=== PATIENT | male | born 1945 | race Caucasian/White ===

== ENCOUNTER 2019-02-12 19:40 | Emergency (ER) | payer MEDICARE ==
--- NOTE | 2019-02-12 21:59 | ER Document Report ---
ED Medical Screen (RME) - General Chief Complaint: Abdominal Pain Stated Complaint: RIGHT SIDE PAIN Time Seen by Provider: 02/12/19 21:53 Primary Care Provider: MONIKA CARBAJAL MD [Primary Care Provider] - Follow up as needed Notes: Patient is a 73-year-old male who presents the emergency department with a chief complaint of right sided abdominal pain. He states that his symptoms started yesterday. States that it his symptoms gradually got worse. Describes his pain as a dull pain at this time. It was sharp earlier. States it feels like a "toothache". His symptoms were also on and off. Denies any fever. He did feel nauseous earlier, but does not feel nauseous at this time. He has not taken any medications to help with his symptoms. He has a past medical history of diabetes, hypertension, and hyperlipidemia. Patient does smoke. Exam: Tender right mid to lower abdomen I have greeted and performed a rapid initial assessment of this patient. A comprehensive ED assessment and evaluation of the patient, analysis of test results and completion of medical decision making process will be conducted by an additional ED providers. TRAVEL OUTSIDE OF THE [place] IN LAST 30 DAYS: No - Related Data Allergies/Adverse Reactions: No Known Drug Allergies Allergy (Verified 02/12/19 19:47) Physical Exam - Vital signs Vitals: Temp Pulse Resp BP Pulse Ox 98.5 F 93 16 153/74 H 97 02/12/19 19:50 02/12/19 19:50 02/12/19 19:50 02/12/19 19:50 02/12/19 19:50 Course - Vital Signs Vital signs: Temp Pulse Resp BP Pulse Ox 98.5 F 93 16 153/74 H 97 02/12/19 19:50 02/12/19 19:50 02/12/19 19:50 02/12/19 19:50 02/12/19 19:50 Doctor's Discharge - Discharge Referrals: MONIKA CARBAJAL MD [Primary Care Provider] - Follow up as needed
[2019-02-12 23:21] LABS: ABSOLUTE BASOPHILS # (AUTO) 0.1 10^3/uL (0.0-0.2); ABSOLUTE EOSINOPHILS # (AUTO) 0.3 10^3/uL (0.0-0.6); ABSOLUTE LYMPHOCYTES (AUTO) 2.1 10^3/uL (0.5-4.7); ABSOLUTE MONOCYTES (AUTO) 0.7 10^3/uL (0.1-1.4); ABSOLUTE NEUT (AUTO) 6.5 10^3/uL (1.7-8.2); BASOPHILS % (AUTO) 1.2 % (0-2); EOSINOPHILS % (AUTO) 2.8 % (0-6); HEMATOCRIT 39.2 % (37.9-51.0); HEMOGLOBIN 13.4 g/dL (13.5-17.0); LYMPHOCYTES % (AUTO) 21.8 % (13-45); MEAN CORPUSCULAR HEMOGLOBIN 30.2 pg (27.0-33.4); MEAN CORPUSCULAR HGB CONC 34.2 g/dL (32.0-36.0); MEAN CORPUSCULAR VOLUME 88 fl (80-97); MONOCYTES % (AUTO) 7.1 % (3-13); PLATELET COUNT 284 10^3/uL (150-450); RED BLOOD COUNT 4.45 10^6/uL (4.35-5.55); RED CELL DISTRIBUTION WIDTH 13.9 % (11.5-14.0); SEGMENTED NEUTROPHILS % (AUTO) 67.1 % (42-78); TOTAL CELLS COUNTED % (AUTO) 100 %; WHITE BLOOD COUNT 9.6 10^3/uL (4.0-10.5)
[2019-02-12 23:23] LABS: APPEARANCE,URINE CLEAR; BILIRUBIN,URINE NEGATIVE (NEGATIVE); COLOR,URINE YELLOW; GLUCOSE, URINE NEGATIVE (NEGATIVE); KETONES,URINE TRACE mg/dL (NEGATIVE); LEUKOCYTE ESTERASE,URINE NEGATIVE (NEGATIVE); NITRITE,URINE NEGATIVE (NEGATIVE); PROTEIN,URINE NEGATIVE (NEGATIVE)
[2019-02-12 23:40] LABS: ALANINE AMINOTRANSFERASE 40 U/L (21-72); ALBUMIN 4.5 g/dL (3.5-5.0); ALKALINE PHOSPHATASE 70 U/L (38-126); ANION GAP 11 (5-19); ASPARTATE AMINO TRANSFERASE 25 U/L (17-59); BILIRUBIN,DIRECT 0.2 mg/dL (0.0-0.4); BILIRUBIN,TOTAL 0.2 mg/dL (0.2-1.3); BLOOD UREA NITROGEN 18 mg/dL (7-20); CALCIUM 10.3 mg/dL (8.4-10.2); CARBON DIOXIDE 28 mmol/L (22-30); CHLORIDE 102 mmol/L (98-107); GLUCOSE 140 mg/dL (75-110); LIPASE 166.4 U/L (23-300); POTASSIUM 4.1 mmol/L (3.6-5.0); SODIUM 140.9 mmol/L (137-145); TOTAL PROTEIN 7.7 g/dL (6.3-8.2)
--- NOTE | 2019-02-13 01:27 | RADIOLOGY REPORT (SQ) ---
EXAM DESCRIPTION: [facility]: CT ABDOMEN PELVIS WITH IV CONTRAST CLINICAL HISTORY: 73 years Male; right mid/lower abdomen. CREAT 0.94 TECHNIQUE: CT of the abdomen and pelvis using intravenous 100 mL Omnipaque [address] scans at this facility use dose modulation, iterative reconstruction, and/or weight based dosing when appropriate to reduce radiation dose to as low as reasonably achievable. COMPARISON: None. FINDINGS: Large hiatal hernia is noted. No adjacent edema or extraluminal fluid/air. Abdomen: Liver: Diffusely hypodense. No focal lesion or ductal distention. Gallbladder: Contracted. No adjacent edema. Pancreas:Within normal limits Spleen:Within normal limits Right kidney:No hydronephrosis. No focal lesion. Left kidney:No hydronephrosis. No focal lesion. Adrenal glands:Within normal limits Vascular structures: Scattered aortic and branch calcifications. No aneurysm or dissection. No major branch occlusion. Pelvis: Small bowel:No significant distention. Appendix:Within normal limits Colon:No distention or acute pericolonic edema. No free intraperitoneal fluid or air. Prostate: Multiple brachytherapy seeds. Bladder is unremarkable. No enlarged pelvic lymph nodes. No acute bone findings. No focal blastic lesions. IMPRESSION: 1. No acute findings 2. Large hiatal hernia 3. Hepatic steatosis 4. Prostate seeds. No evidence for metastatic disease in the abdomen or pelvis.
--- NOTE | 2019-02-13 01:55 | ER Document Report ---
ED General - General Chief Complaint: Abdominal Pain Stated Complaint: RIGHT SIDE PAIN Time Seen by Provider: 02/12/19 21:53 Primary Care Provider: MONIKA CARBAJAL MD [ASSOCIATE] - 02/15/19 Notes: Patient is a pleasant 73-year-old male who presents with complaints of several days of worsening abdominal pain. Pain is mostly in the lower abdomen is little bit worse than the right. Says yesterday he felt as if he was constipated but today had a bowel movement and therefore does not think is related to that. Some nausea but no vomiting. No fevers. No dysuria. No blood in the stool. No other complaints at this time. TRAVEL OUTSIDE OF THE [place] IN LAST 30 DAYS: No - Related Data Allergies/Adverse Reactions: No Known Drug Allergies Allergy (Verified 02/12/19 22:04) Past Medical History - Social History Smoking Status: Current Every Day Smoker Frequency of alcohol use: None Drug Abuse: None Family History: Reviewed & Not Pertinent Patient has suicidal ideation: No Patient has homicidal ideation: No - Past Medical History Cardiac Medical History: Reports: Hx Heart Attack - 2013, Hx Hypercholesterolemia Endocrine Medical History: Reports: Hx Diabetes Mellitus Type 2 Renal/ Medical History: Denies: Hx Peritoneal Dialysis Past Surgical History: Reports: Hx Cardiac Catheterization - stent Review of Systems - Review of Systems Notes: My Normal Review Basic REVIEW OF SYSTEMS: CONSTITUTIONAL : Denies fever, chills, or sweats. Denies recent illness. EENT: Denies eye, ear, throat, or mouth pain or symptoms. Denies nasal or sinus congestion. CARDIOVASCULAR: Denies chest pain. RESPIRATORY: Denies cough, cold, or chest congestion. Denies shortness of br eath, difficulty breathing, or wheezing. GASTROINTESTINAL: Abdominal pain. Some nausea. No vomiting. GENITOURINARY: Denies difficulty urinating, painful urination, burning, frequency, or blood in urine. SKIN: Denies rash or skin lesions. NEUROLOGICAL: Denies altered mental status or loss of consciousness. Denies headache. Denies weakness or paralysis or loss of use of either side. Denies problems with gait or speech. Denies sensory or motor loss. ALL OTHER SYSTEMS REVIEWED AND NEGATIVE. Physical Exam - Vital signs Vitals: Temp Pulse Resp BP Pulse Ox 98.5 F 93 16 153/74 H 97 02/12/19 19:50 02/12/19 19:50 02/12/19 19:50 02/12/19 19:50 02/12/19 19:50 - Notes Notes: General Appearance: Well nourished, alert, cooperative, no acute distress, mild obvious discomfort. Well-appearing. Vitals: reviewed, See vital signs table. Eyes: PERRL, EOMI, Conjuctiva clear Mouth: No decreasd moisture Lungs: No wheezing, No rales, No rhonci, No accessory muscle use, good air exchange bilaterally. Heart: Normal rate, Regular rythm, No murmur, no rub Abdomen: Normal BS, soft, No rigidity, mild right lower quadrant and suprapubic abdominal tenderness to palpation., No guarding, no rebound, no abdominal masses, no organomegaly Extremities: strength 5/5 in all extremities, good pulses in all extremities, no swelling or tenderness in the extremities, no edema. Skin: warm, dry, appropriate color, no rash Neuro: speech clear, oriented x 3, normal affect, responds appropriately to questions. Course - Re-evaluation Re-evalutation: 02/13/19 01:[address] scan does not show any concerning findings. His laboratory evaluation is completely unremarkable. He does mention that yesterday when the symptoms first arrived he felt more like constipation. He had a bowel movement today and therefore he felt like to be constipation and the pain gradually worsened therefore he came to the ER. Said some nausea but no vomiting. No fevers. He clinically looks very well. On exam his pain is not really made worse with palpation. He is not in any severe pain at this time. His abdomen is very soft. I informed him that his pain could be related constipation however we cannot understand blame it on constipation as sometimes initial work- up will be negative and more serious pathology were not presented self to later. I informed him that he must return to the ER in 24 hours if he still having any pain whatsoever. Encouraged him to take MiraLAX and Metamucil in the meantime. Patient encouraged to return to ER immediately if he has fevers, worsening pain, vomiting, or feels unwell. Patient agrees with plan and will be discharged home. Dictation of this chart was performed using voice recognition software; therefore, there may be some unintended grammatical errors. - Vital Signs Vital signs: Temp Pulse Resp BP Pulse Ox 97.8 F 89 16 120/75 97 05/01/19 02:03 02/13/19 02:03 02/13/19 02:03 02/13/19 02:03 02/13/19 02:03 - Laboratory Result Diagrams: 02/12/19 23:00 02/12/19 23:00 Laboratory results interpreted by me: 02/12/19 02/12/19 02/12/19 23:00 23:00 23:00 Hgb 13.4 L Glucose 140 H Calcium 10.3 H Urine Ketones TRACE H Urine Urobilinogen 4.0 H Discharge - Discharge Clinical Impression: Abdominal pain Qualifiers: Abdominal location: unspecified location Qualified Code(s): R10.9 - Unspecified abdominal pain Disposition: HOME, SELF-CARE Additional Instructions: Your current work-up and CT scan does not show any concerning findings. There is no evidence of appendicitis. There is no evidence of infection currently. As discussed with you, your pain could be related to recent diet change as potentially this can cause some constipation. Again, we do not know if this is the exact cause of your pain and therefore we do not want to completely blame it on constipation. We therefore we will have you start taking Metamucil and take MiraLAX 1-2 times over the next 24 hours. If after 24 hours you are still having any pain then you should return to the ER for reevaluation. Please return to the ER sooner if you are having increasing pain, vomiting, or any fevers. Referrals: MONIKA CARBAJAL MD [ASSOCIATE] - 02/15/19
[2019-02-13 02:05] VITALS: BP 120/75
== END 2019-02-13 02:09 | disposition home or self-care (01) ==
LOC: ER 19:40
DX: R10.30 Lower abdominal pain, unspecified (principal); R10.813 Right lower quadrant abdominal tenderness; R11.0 Nausea; F17.200 Nicotine dependence, unspecified, uncomplicated; E11.9 Type 2 diabetes mellitus without complications; I25.2 Old myocardial infarction; Z95.5 Presence of coronary angioplasty implant and graft
CPT/HCPCS: 36415; 74177; 80053; 81001; 83690; 85025; 99284